=== PATIENT | female | born 1975 | race Caucasian/White ===

== ENCOUNTER 2022-09-09 23:58 | Emergency (ER) | payer OTHER ==
[~2022-09-09] VITALS: Ht 165.1 cm; Wt 74.4 kg
[2022-09-10 00:32] LABS: BASO % 0.2 % (0.0-1.0); EOS % 0.2 % (1.0-4.0); HEMATOCRIT 41.9 % (37.0-47.0); LYMPH # 0.9 10*3/uL (1.3-4.4); LYMPH % 6.6 % (27.0-41.0); MEAN CELL VOLUME 87.8 fl (81.0-99.0); MEAN CORPUSCULAR HGB 29.1 pg (27.0-31.0); MEAN CORPUSCULAR HGB CONC 33.2 g/dl (33.0-37.0); MEAN PLATELET VOLUME 9.4 fl (9.6-12.3); MONO # 0.7 10*3/uL (0.1-1.0); MONO % 4.9 % (3.0-9.0); NEUT # 11.6 10*3/uL (2.3-7.9); NEUT % 87.9 % (47.0-73.0); PLATELET COUNT AUTOMATED 371 10*3/uL (130-400); RED BLOOD COUNT 4.77 10*6/uL (4.10-5.10); RED CELL DISTRI WIDTH 17.2 % (0-14.5); WHITE BLOOD COUNT 13.2 10*3/uL (4.8-10.8)
[2022-09-10 00:43] LABS: ACT PARTIAL THROMBO TIME 25.6 SECONDS (20.0-32.1)
[2022-09-10 00:52] LABS: ALKALINE PHOSPHATASE 89 U/L (46-116); BUN 7 mg/dl (9-23); CHLORIDE 103 mmol/L (98-107); LIPASE 29 U/L (12-53); SGPT/ALT 11 U/L (10-49)
[2022-09-10 01:41] LABS: BILIRUBIN Negative (Negative); BLOOD Negative (Negative); CLARITY Cloudy (Clear); COLOR Yellow (Yellow); GLUCOSE Trace (Negative); KETONE 3+ (Negative); LEUKO ESTERASE Trace (Negative); NITRITE Negative (Negative); SPECIFIC GRAVITY >= 1.030 (1.001-1.030); UROBILINOGEN 0.2 E.U./dl (0.0-1.0)
[2022-09-10 01:49] LABS: BACTERIA 1+; MUCOUS 1+
[2022-09-10] MEDS ORDERED: CIPRO500 MG PO (01:55)
[2022-09-10] MEDS ORDERED: REGLAN10 M1 PO (01:58)
== END 2022-09-10 02:23 | disposition home or self-care (01) ==
LOC: ED 23:58 → EDBD 09-10 00:13 → ED 09-10 00:13
PROVIDERS: Internal Medicine
DX: F17.200 Nicotine dependence, unspecified, uncomplicated (principal); N39.0 Urinary tract infection, site not specified; R11.2 Nausea with vomiting, unspecified